=== PATIENT | female | born 1970 | race Caucasian/White ===

== ENCOUNTER 2017-10-03 02:36 | Emergency (ER) | payer BC, OTHER ==
[2017-10-03] MEDS ORDERED: FENTANYL CITR 100 MCG/2 ML ONE (03:54)
[2017-10-03] MEDS ORDERED: PIPER/TAZO/NS 3.375gm 3.375 GM/100 ML BAG ONE (04:36)
[2017-10-03] MEDS ORDERED: D5 0.45 NS 1,000 ML IV ONE (04:37)
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
== END 2017-10-03 06:24 | disposition short-term general hospital (02) ==
LOC: ER 02:36
DX: S02.30XA Fracture of orbital floor, unspecified side, initial encounter for closed fracture (principal); I10 Essential (primary) hypertension; Y04.2XXA Assault by strike against or bumped into by another person, initial encounter; Y93.9 Activity, unspecified; Y92.009 Unspecified place in unspecified non-institutional (private) residence as the place of occurrence of the external cause; Z85.850 Personal history of malignant neoplasm of thyroid
CPT/HCPCS: 70450; 70486; 72125; 76377; 96361; 96365; 96366; 96375; 99285; J2543; J3010

== ENCOUNTER 2019-02-23 08:40 | Emergency (ER) | payer BC ==
--- NOTE | 2019-02-23 09:28 | ER ---
Nurse's Notes [facility] Name: Brandy Brewer Age: 49 yrs Sex: Female : 1970 Arrival Date: 02/23/2019 Time: 08:42 Bed 19 Private MD: Damien Mckeon Diagnosis: Pain in right leg Presentation: 02/23 08:47 Presenting complaint: Patient states: R upper thigh pain that increases when taking a ss deep breath. Denies injury. Began this morning. Transition of care: patient was not received from another setting of care. Onset of symptoms was February 23, 2019. Risk Assessment: Do you want to hurt yourself or someone else? Patient reports no desire to harm self or others. Initial Sepsis Screen: Does the patient meet any 2 criteria? No. Patient's initial sepsis screen is negative. Does the patient have a suspected source of infection? No. Patient's initial sepsis screen is negative. Care prior to arrival: None. 08:47 Method Of Arrival: Ambulatory ss 08:47 Acuity: BUCK 4 ss Historical: - Allergies: 08:49 Bactrim; ss - PMHx: 08:49 borderline diabetic; HTN; THYROID CANCER; ss - PSHx: 08:49 Thyroidectomy; Tubal ligation; knee sx; ss - Immunization history:: Adult Immunizations up to date. - Family history:: not pertinent. - Social history:: Smoking status: Patient/guardian denies using tobacco. - Ebola Screening: : No symptoms or risks identified at this time. - Hospitalizations: : No recent hospitalization is reported. Screenin:00 Abuse screen: Denies threats or abuse. Denies injuries from another. Nutritional hb screening: No deficits noted. Tuberculosis screening: No symptoms or risk factors identified. Fall Risk None identified. Assessment: 09:00 General: Appears in no apparent distress. Behavior is calm, cooperative. Pain: Pain hb currently is 4 out of 10 on a pain scale. Neuro: Level of Consciousness is awake, alert, obeys commands, Oriented to person, place, time, situation. Cardiovascular: Capillary refill < 3 seconds Patient's skin is warm and dry. Respiratory: Airway is patent Respiratory effort is even, unlabored, Respiratory pattern is regular, symmetrical. GI: No signs and/or symptoms were reported involving the gastrointestinal system. : No signs and/or symptoms were reported regarding the genitourinary system. EENT: No signs and/or symptoms were reported regarding the EENT system. Derm: Skin is pink, warm \T\ dry. Musculoskeletal: Reports right thigh pain. Vital Signs: 08:55 BP 137 / 64; Pulse 81; Resp 16; Temp 97.8; Pulse Ox 100% ; Weight 92.53 kg; Height 5 hb ft. 7 in. (170.18 cm); Pain 4/10; 08:55 Body Mass Index 31.95 (92.53 kg, 170.18 cm) hb ED Course: 08:42 Patient arrived in ED. mr 08:43 Damien Mckeon is Private Physician. mr 08:44 Casper Raman MD is Attending Physician. rn 08:48 Triage completed. ss 08:49 Arm band placed on right wrist. ss 08:57 Destiny Reyes, LIANA is Primary Nurse. ss 09:00 Patient has correct armband on for positive identification. Bed in low position. Call hb light in reach. Side rails up X 1. 09:06 Patient taken to ultrasound. via wheelchair. lc3 09:23 Extremity Venous Uni Ltd US In Process Unspecified. EDMS 09:40 No provider procedures requiring assistance completed. Patient did not have IV access hb during this emergency room visit. Administered Medications: No medications were administered Outcome: 09:26 Discharge ordered by . rn 09:40 Discharged to home ambulatory. hb 09:40 Condition: stable 09:40 Discharge instructions given to patient, Instructed on discharge instructions, follow up and referral plans. medication usage, Demonstrated understanding of instructions, follow-up care, medications. 09:41 Patient left the ED. hb Signatures: Dispatcher [employer] EDNE Prema Casas mr Casper Raman MD MD rn Smirch, Shelby, RN RN Behzad Howard Heather, RN RN hb
--- NOTE | 2019-02-23 09:28 | EDPHYS ---
Physician Documentation [facility] Name: Brandy Brewer Age: 49 yrs Sex: Female : 1970 Arrival Date: 02/23/2019 Time: 08:42 Bed 19 Private MD: Damien Mckeon ED Physician Casper Raman HPI: 02/23 09:09 This 49 yrs old Female presents to ER via Ambulatory with complaints of Leg rn Pain. 09:14 This 49 yrs old Female presents to ER via Ambulatory with complaints of Leg rn Pain. 09:09 Modifying factors: The symptoms are alleviated by nothing. the symptoms are aggravated rn by movement. Severity of symptoms: At their worst the symptoms were mild, in the emergency department the symptoms are unchanged. 09:14 The patient presents with pain, that is acute. The complaints affect the right rn quadriceps. Onset: The symptoms/episode began/occurred this morning. Reports felt fine, then began having right anterior thigh pain, no injury, no fever, no skin changes, hurts leg when breathes but no chest pain or abd pain.. Historical: - Allergies: 08:49 Bactrim; ss - PMHx: 08:49 borderline diabetic; HTN; THYROID CANCER; ss - PSHx: 08:49 Thyroidectomy; Tubal ligation; knee sx; ss - Immunization history:: Adult Immunizations up to date. - Family history:: not pertinent. - Social history:: Smoking status: Patient/guardian denies using tobacco. - Ebola Screening: : No symptoms or risks identified at this time. - Hospitalizations: : No recent hospitalization is reported. ROS: 09:09 Constitutional: Negative for fever, chills, and weight loss, Cardiovascular: Negative rn for chest pain, palpitations, and edema, Abdomen/GI: Negative for abdominal pain, nausea, vomiting, diarrhea, and constipation, Back: Negative for injury : Negative for injury, bleeding, discharge, and swelling, MS/Extremity: Negative for injury and deformity, Skin: Negative for injury, rash, and discoloration, Neuro: Negative for headache, weakness, numbness, tingling, and seizure. Exam: 09:09 Constitutional: This is a well developed, well nourished patient who is awake, alert, rn and in no acute distress. Ambulatory to room without difficulty or assistance. Abdomen/GI: Soft, non-tender Back: No spinal tenderness. No costovertebral tenderness. Full range of motion. Skin: Warm, dry with normal turgor. Normal color with no rashes, no lesions, and no evidence of cellulitis. MS/ Extremity: Pulses equal, no cyanosis. Neurovascular intact. Full, normal range of motion. Equal circumference. Neuro: Awake and alert, GCS 15, oriented to person, place, time, and situation. Cranial nerves II-XII grossly intact. Motor strength 5/5 in all extremities. Sensory grossly intact. Cerebellar exam normal. Normal gait. Vital Signs: 08:55 BP 137 / 64; Pulse 81; Resp 16; Temp 97.8; Pulse Ox 100% ; Weight 92.53 kg; Height 5 hb ft. 7 in. (170.18 cm); Pain 4/10; 08:55 Body Mass Index 31.95 (92.53 kg, 170.18 cm) hb MDM: 08:45 Patient medically screened. rn 09:25 Data reviewed: vital signs, nurses notes, radiologic studies, ultrasound, and as a rn result, I will discharge patient. Counseling: I had a detailed discussion with the patient and/or guardian regarding: the historical points, exam findings, and any diagnostic results supporting the discharge/admit diagnosis, radiology results, the need for outpatient follow up, to return to the emergency department if symptoms worsen or persist or if there are any questions or concerns that arise at home. Special discussion: I discussed with the patient/guardian in detail that at this point there is no indication for admission to the hospital. It is understood, however, that if the symptoms persist or worsen the patient needs to return immediately for re-evaluation. ED course: U/S RLE negative, will dc home with return precautions. . 02/23 08:51 Order name: Extremity Venous Uni Ltd rn Administered Medications: No medications were administered Disposition: 02/23/19 09:26 Discharged to Home. Impression: Pain in right leg. - Condition is Stable. - Discharge Instructions: Musculoskeletal Pain, Pain Without a Known Cause. - Medication Reconciliation Form, Thank You Letter, Antibiotic Education, Prescription Opioid Use form. - Follow up: Private Physician; When: As needed; Reason: Recheck today's complaints, Re-evaluation by your physician. - Problem is new. - Symptoms are unchanged. Signatures: Dispatcher [employer] EDMS Casper Raman MD MD rn Smirch, Destiny, RN RN ss Yola Patel RN RN hb Corrections: (The following items were deleted from the chart) 09:09 The patient presents with pain, that is chronic, rn rn :16 09:09 The complaints affect the left hamstring, rn rn : 09:09 Onset: The symptoms/episode began/occurred 1 month(s) ago, rn rn : 09:09 The patient has experienced similar episodes in the past, rn omaira : 09:09 Reports approx 1 month of left leg pain, no injury, radiates from lower back, no rn abd issues, no weakness, no bowel/bladder issues. . rn 09:41 09:26 02/23/2019 09:26 Discharged to Home. Impression: Pain in right leg. Condition is hb Stable. Forms are Medication Reconciliation Form, Thank You Letter, Antibiotic Education, Prescription Opioid Use. Follow up: Private Physician; When: As needed; Reason: Recheck today's complaints, Re-evaluation by your physician. Problem is new. Symptoms are unchanged. rn
--- NOTE | 2019-02-23 09:33 | RAD REPORT ---
EXAM DESCRIPTION: USExtremity Venous Uni Ltd02/23/2019 9:22 am CLINICAL HISTORY: Right leg pain COMPARISON: None. FINDINGS: Right common femoral, superficial femoral, popliteal and right posterior tibial veins are compressible and demonstrate augmentation. Doppler demonstrates good flow. IMPRESSION: No evidence of deep venous thrombosis involving the right lower extremity.
[2019-02-23 09:49] VITALS: BP 137/64; TEMP 97.8; O2SAT 100
== END 2019-02-23 09:41 | disposition home or self-care (01) ==
LOC: ER 08:40
DX: M79.604 Pain in right leg (principal); Z88.1 Allergy status to other antibiotic agents
CPT/HCPCS: 93971; 99284